=== PATIENT | male | born 1970 | race Caucasian/White ===

== ENCOUNTER 2017-02-10 14:11 | Day surgery (SDC) | payer BC ==
[~2017-02-10] VITALS: Ht 175.3 cm; Wt 112.5 kg
[~2017-02-10 14:11] MED LIST: ATORVASTATIN; LIPITOR; METOPROLOL; NORCO 5/325 TAB1 TAB PO
[2017-02-10] MEDS ORDERED: FLOMAX0.4 M1 PO (17:04)
[2017-02-10] MEDS ORDERED: TOFRANIL PO (17:04)
[2017-02-10] MEDS ORDERED: CALCITRIOL0.25 MC1 PO (17:04)
[2017-02-10] MEDS ORDERED: SODIUM BICARBO650 M1 PO (17:04)
[2017-02-10] MEDS ORDERED: NORVASC10 M2 PO (17:05)
[2017-02-10] MEDS ORDERED: LIPITOR10 M1 PO (17:05)
[2017-02-10] MEDS ORDERED: PRINIVIL10 M1 PO ×2 (17:06)
[2017-02-10] MEDS ORDERED: METOPROLOL TAR100 M2 PO (17:07)
== END 2017-02-10 16:41 ==
LOC: SHSA 14:11 → RADSP 14:11
PROC: 03783ZZ Dilation of Left Brachial Artery, Percutaneous Approach (ICD-10-PCS; principal; 2017-02-10)
DX: T82.858A Stenosis of other vascular prosthetic devices, implants and grafts, initial encounter (principal); I12.0 Hypertensive chronic kidney disease with stage 5 chronic kidney disease or end stage renal disease; N18.6 End stage renal disease; Y83.8 Other surgical procedures as the cause of abnormal reaction of the patient, or of later complication, without mention of misadventure at the time of the procedure; Z79.899 Other long term (current) drug therapy; Z98.890 Other specified postprocedural states
CPT/HCPCS: C1725; C1769; J2250; J3010; Q9967